=== PATIENT | male | born 1980 | race Caucasian/White ===

== ENCOUNTER 2017-08-21 18:45 | Emergency (ER) | payer OTHER ==
[2017-08-21 18:58] VITALS: BP 126/89
--- NOTE | 2017-08-21 20:08 | EDM.PDOC ---
ED HPI GENERAL MEDICAL PROBLEM - General Chief Complaint: Lower Extremity Injury/Pain Stated Complaint: LEFT KNEE PAIN Time Seen by Provider: 08/21/17 19:40 Source of Information: Reports: Patient, Family History Limitations: Reports: No Limitations - History of Present Illness INITIAL COMMENTS - FREE TEXT/NARRATIVE: Patient is a 37-year-old who presents emergency Department with left knee pain. Patient states he had an injury when he was in the a few years back. At that time they did a CT of his knee and said he had a ligamentous injury. He never had surgery. He states that occasionally maybe once or twice a year, he gets flares up's. Patient went to the [facility] this week but was told to return on Sunday for care. Patient denies any fever or chills nausea or vomiting abdominal pain calf pain or any redness or streaking down his leg. Patient does state the knee hurts and he hears cracking sounds when ambulating. Onset: Sudden Duration: Day(s): (2) Location: Reports: Lower Extremity, Left Quality: Reports: Dull, Throbbing Severity: Severe Improves with: Reports: Cold Therapy, Medication Worsens with: Reports: Movement Context: Reports: Other (see hpi) Associated Symptoms: Reports: No Other Symptoms Treatments [employer]ER: Reports: Acetaminophen, Cold Therapy, NSAIDS Left Knee Pain Score (Numeric/FACES): 10 - Related Data Allergies Allergy/AdvReac Type Severity Reaction Status Date / Time acetaminophen [From Vicodin] Allergy Other Verified 08/21/17 18:55 hydrocodone [From Vicodin] Allergy Other Verified 08/21/17 18:55 Home Meds: Home Meds Naproxen [Naprosyn] 500 mg PO Q12HR #20 tab 08/21/17 [Rx] traMADol [Ultram] 50 mg PO BEDTIME PRN #15 tab 08/21/17 [Rx] Past Medical History Gastrointestinal History: Reports: GERD Psychiatric History: Reports: Addiction, Anxiety, Depression, PTSD - Past Surgical History Other Musculoskeletal Surgeries/Procedures:: left shoulder injury Social & Family History - Tobacco Use Smoking Status *Q: Current Every Day Smoker Years of Tobacco use: 20 Packs/Tins Daily: 0.5 - Caffeine Use Caffeine Use: Reports: Coffee - Recreational Drug Use Recreational Drug Use: No Review of Systems - Review of Systems Review Of Systems: See Below Constitutional: Reports: No Symptoms Eyes: Reports: No Symptoms Ears: Reports: No Symptoms Nose: Reports: No Symptoms Mouth/Throat: Reports: No Symptoms Respiratory: Reports: No Symptoms Cardiovascular: Reports: No Symptoms GI/Abdominal: Reports: No Symptoms Genitourinary: Reports: No Symptoms Musculoskeletal: Reports: Joint Pain, Joint Swelling Skin: Reports: No Symptoms Neurological: Reports: No Symptoms Psychiatric: Reports: No Symptoms ED EXAM, GENERAL - Physical Exam Exam: See Below Exam Limited By: No Limitations General Appearance: Alert, WD/WN, Mild Distress Ears: Normal External Exam, Normal Canal, Hearing Grossly Normal Ear Exam: Bilateral Ear: Auricle Normal, Canal Normal, TM normal Nose: Normal Inspection, Normal Mucosa, No Blood Throat/Mouth: Normal Inspection, Normal Lips, Normal Gums, Normal Oropharynx, Normal Voice, No Airway Compromise Head: Atraumatic, Normocephalic Neck: Normal Inspection, Supple, Non-Tender, Full Range of Motion Respiratory/Chest: No Respiratory Distress, Lungs Clear, Normal Breath Sounds, No Accessory Muscle Use, Chest Non-Tender Cardiovascular: Normal Peripheral Pulses, Regular Rate, Rhythm, No Edema, No Gallop, No JVD, No Murmur, No Rub GI/Abdominal: Normal Bowel Sounds, Soft, Non-Tender, No Organomegaly, No Distention, No Abnormal Bruit, No Mass Back Exam: Normal Inspection, Full Range of Motion, NT Extremities: Normal Inspection, Normal Range of Motion, No Pedal Edema, Normal Capillary Refill, Limited Range of Motion Neurological: Alert, Oriented, CN II-XII Intact, Normal Cognition, Normal Gait, No Motor/Sensory Deficits Psychiatric: Normal Affect, Normal Mood Skin Exam: Warm, Dry, Intact, Normal Color, No Rash Course - Vital Signs Last Recorded V/S: Last Vital Signs Temp 99.0 F 08/21/17 18:55 Pulse 99 08/21/17 18:55 Resp 16 08/21/17 18:55 BP 126/89 08/21/17 18:55 Pulse Ox 99 08/21/17 18:55 Departure - Departure Time of Disposition: 20:13 Disposition: Home, Self-Care 01 Condition: Good Clinical Impression: Knee pain, left Qualifiers: Chronicity: acute Qualified Code(s): M25.562 - Pain in left knee - Discharge Information *PRESCRIPTION DRUG MONITORING PROGRAM REVIEWED*: No *COPY OF PRESCRIPTION DRUG MONITORING REPORT IN PATIENT PARUL: No Instructions: Knee Pain, Adult Referrals: PCP,Not In Area [Primary Care Provider] - Forms: ED Department Discharge
== END 2017-08-21 20:35 | disposition home or self-care (01) ==
LOC: JD.ED 18:45
DX: M25.562 Pain in left knee (principal); F17.210 Nicotine dependence, cigarettes, uncomplicated; Z88.6 Allergy status to analgesic agent; Z88.5 Allergy status to narcotic agent
CPT/HCPCS: 99283

== ENCOUNTER 2021-11-17 10:33 | Emergency (ER) | payer OTHER ==
[2021-11-17] MEDS ORDERED: Sodium Chloride 0.9% 1,000 ML IV STA (11:36)
[2021-11-17] MEDS ORDERED: Ketorolac 30 MG/ML SDV IVPUSH ONE (11:36)
[2021-11-17] MEDS ORDERED: Ondansetron 4 MG/2 ML SDV IVPUSH ONE (11:36)
[2021-11-17] MEDS ORDERED: HYDROmorphone 0.5 MG/0.5 ML Syringe IVPUSH ONE (13:16)
[2021-11-17 15:36] VITALS: BP 149/84; PULSE 83
== END 2021-11-17 14:30 | disposition home or self-care (01) ==
LOC: JD.ED 10:33
DX: R51.9 Headache, unspecified (principal); F17.210 Nicotine dependence, cigarettes, uncomplicated; Z88.6 Allergy status to analgesic agent; Z88.5 Allergy status to narcotic agent; Z79.899 Other long term (current) drug therapy
CPT/HCPCS: 70450; 96361; 96374; 96375; 99284; J1170; J1885; J2405; J7030

== ENCOUNTER 2021-12-01 01:40 | Emergency (ER) | payer OTHER ==
[2021-12-01 02:08] VITALS: BP 135/100; PULSE 85
[2021-12-01 03:18] LABS: ACETAMINOPHEN 0 ug/mL (10-30); ESTIMATED GFR 96 mL/min (>60)
== END 2021-12-01 11:09 | disposition home or self-care (01) ==
LOC: JD.ED 01:40
DX: F10.920 Alcohol use, unspecified with intoxication, uncomplicated (principal); F17.210 Nicotine dependence, cigarettes, uncomplicated; Z88.8 Allergy status to other drugs, medicaments and biological substances; Z88.5 Allergy status to narcotic agent; Z20.822 Contact with and (suspected) exposure to COVID-19; Y90.1 Blood alcohol level of 20-39 mg/100 ml
CPT/HCPCS: 36415; 80053; 80143; 80179; 80307; 84443; 85025; 99285; U0002

== ENCOUNTER 2023-05-22 21:52 | Emergency (ER) | payer OTHER ==
[2023-05-22 21:56] VITALS: BP 151/93; PULSE 125
[2023-05-22 22:33] LABS: BASOPHILS ABSOLUTE AUTO 0.1 K/mm3 (0.0-0.2); BASOPHILS PERCENT AUTO 0.8 % (0.0-1.0); EOSINOPHILS ABSOLUTE AUTO 0.4 K/mm3 (0.0-0.4); EOSINOPHILS PERCENT AUTO 3.7 % (0.0-6.0); HEMATOCRIT 46.1 % (42.0-52.0); HEMOGLOBIN 16.6 gm/dl (14.0-18.0); IMMATURE GRAN ABSOLUTE AUTO 0.05 K/mm3 (0.00-0.05); IMMATURE GRAN PERCENT AUTO 0.5 % (0.0-0.4); LYMPHOCYTES ABSOLUTE AUTO 3.6 K/mm3 (1.0-4.8); LYMPHOCYTES PERCENT AUTO 35.9 % (24.0-44.0); MEAN CORPUSCULAR HEMOGLOBIN 34.9 pg (28.0-32.0); MEAN CORPUSCULAR VOLUME 97.1 fl (83.0-99.0); MEAN PLATELET VOLUME 9.8 fl (9.4-12.4); MONOCYTES ABSOLUTE AUTO 0.7 K/mm3 (0.0-0.8); NEUTROPHILS ABSOLUTE AUTO 5.2 K/mm3 (1.8-7.7); NEUTROPHILS PERCENT AUTO 52.1 % (41.0-71.0); PLATELET COUNT,PLT 237 K/mm3 (150-400); RED BLOOD CELL COUNT 4.75 M/mm3 (4.52-5.90); WHITE BLOOD CELL COUNT,WBC 10.04 K/mm3 (3.9-11.3)
[2023-05-22 23:12] LABS: A/G RATIO 1.2 (1-2); ANION GAP 14.3 (5-15); BILIRUBIN TOTAL 0.3 mg/dL (0.2-1.0); CALCIUM 9.1 mg/dL (8.5-10.1); CREATININE 1.2 mg/dL (0.7-1.3); EST CRCL DRUG DOSING (CG) 72.32 mL/min; ETHANOL BLOOD MEDICAL 0.23 gm% (0.00); POTASSIUM,K 3.3 mEq/L (3.5-5.1); PROTEIN TOTAL,TP 7.3 g/dl (6.4-8.2)
[2023-05-22 23:38] LABS: BARBITURATE SCREEN,URINE NEGATIVE (CUTOFF=200); BENZODIAZEPINES SCREEN,URINE NEGATIVE (CUTOFF=150); BUPRENORPHINE SCREEN,URINE NEGATIVE (CUTOFF=10); METHADONE SCREEN, URINE NEGATIVE (CUT0FF=200); METHAMPHETAMINES SCREEN, URINE NEGATIVE (CUTOFF=500); OXYCODONE SCREEN,URINE NEGATIVE (CUT0FF=100); THC SCREEN,URINE 20 NG/ML NEGATIVE (CUTOFF=50)
[2023-05-22 23:39] LABS: AMPHETAMINES SCREEN, URINE NEGATIVE (CUTOFF=500)
[2023-05-22] MEDS: DULoxetine 20 MG Cap PO ONE (23:40)
[2023-05-22] MEDS: Ibuprofen 400 MG Tab PO ONE (23:40)
== END 2023-05-22 23:47 | disposition home or self-care (01) ==
LOC: JD.ED 21:52
DX: S30.21XA Contusion of penis, initial encounter (principal); N43.3 Hydrocele, unspecified; Z79.899 Other long term (current) drug therapy; Y04.0XXA Assault by unarmed brawl or fight, initial encounter
CPT/HCPCS: 36415; 76870; 80053; 80306; 80307; 83690; 85025; 93975; 99284; A9270